=== PATIENT | female | born 1975 | race Caucasian/White ===

== ENCOUNTER → 2016-11-02 | Outpatient (CLI) | payer MEDICARE, MEDICAID ==
[~2016-11-02] MED LIST: ACET-789 PO; ALBU8.5H2 INH; CETI10TA20 PO; CODE-54 PO; CYCL10TA45 PO; DULO30CA46 PO; FLUT1DIS IH; KETO10TA55 PO; LITH150C PO; LORA1TAB PO; METH4TAB27 PO; MONT10TA21 PO; MORP15TA PO; NF-LAM100T PO; ORLI60CA2 PO; ORPH100T3 PO; PRED20TA PO; TRAZ300T3 PO; VENL150C PO
[2016-11-02 14:35] VITALS: BP 150/99
--- NOTE | 2016-11-02 14:35 | Urgent Care T Sheet Gen (E) ---
Intake General Temperature (Fahrenheit): 99.0 Pulse: 100 Blood Pressure Systolic: 150 Blood Pressure Diastolic: 99 Respirations: 20 SPO2: 98 Description of Symptoms Patient presents with a red, itchy, generalized rash which was first noticed on Tuesday. Denies any change to detergents or soaps. Patient states this happens quite often. Took some Benadryl earlier without any improvement. Would like a steroid shot, which is usually what she needs to help settle her skin. No itchy throat or SOB. History of Present Illness Allergies: Coded Allergies: Oxycodone (Verified Allergy, Unknown, RASH, N/V, 06/23/14) aspirin (Verified Allergy, Unknown, RASH, N/V, 06/23/14) hydrocodone (Verified Allergy, Unknown, RASH, N/V, 06/23/14) latex (Verified Allergy, Unknown, SKIN BLISTERS, 06/23/14) Uncoded Allergies: ADHESIVE FROM BANDAIDS (Allergy, Unknown, SKIN "BREAK OUT" AT SITE OF APPLICATION., 06/23/14) Home Meds Active Scripts Acetaminophen/Codeine (Tylenol W/Codeine #3 (300mg/30mg))1 Tab Tablet1-2 Tab PO Q4H PRN PAIN #15 TAB Prov:MATHEUS PATTERSON MD 06/22/14 Prednisone 20 Mg Infasd35 Mg PO DAILY 10 Days 2 daily x3 days, then One daily x3 days, then 1/2 daily x4 days. Prov:YOBANI PRASAD MD 12/31/13 Reported Medications Cyclobenzaprine HCl (Flexeril)10 Mg Nxwpsw74 Mg PO TID PRN PAIN 12/31/13 Orlistat ([place])60 Mg Lffoqcy74 Mg PO TID PRN CONSTIPATION 12/31/13 Fluticasone/Salmeterol (Advair 100mcg/50mcg Diskus)1 Disk Inhp1 Disk IH BID 12/31/13 Duloxetine HCl 30 Mg Capsule.dr90 Mg PO DAILY 12/31/13 Venlafaxine HCl (Effexor XR)150 Mg Cap.er.24h2 Cap PO DAILY 09/29/12 Lorazepam 1 Mg Tablet1 Tab PO TID 09/29/12 Trazodone HCl 300 Mg Tablet1 Tab PO DAILY 09/29/12 Albuterol Sulfate (Proair HFA)8.5 Gm Hfa.aer.ad2 Puff INH 6 TIME PER DAY 09/29/12 Montelukast Sodium (Singulair)10 Mg Tablet1 Tab PO DAILY 09/29/12 Cetirizine HCl (Zyrtec)10 Mg Tablet1 Tab PO DAILY 09/29/12 [place] Carbonate 150 Mg Capsule1 Cap PO BID 09/29/12 Lamotrigine (Lamictal)100 Mg Tab1 Tab PO BID 09/29/12 Respiratory Constitutional Symptoms: No syptoms reported EENTM: No symptoms reportedNo Throat swelling Respiratory: No symptoms reportedNo Cough, No Short of breath Skin: Rash All Other Systems Reviewed Remaining Systems: All other systems reviewed with negative findings Past Rtlrrje-Spmyyj-Zjejxv Hx Patient's Social History Recent foreign travel: No Surgeries/Hospitalizations Hospitalization/Surgery Hx: BILATERAL BUNIONECTOMY X 2, TL, TONGUE SURGERY SMALL CHILD, BACK PROBLEMS STARTED AT AGE 27 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 worse along the lateral legs and arms. rash is blanchable. scratch dotson seen throughout. no signs of infection.) Medications Administered Medications Adminstered: Depomedrol (80mg IM injection into the L gluteal. Lot [id number] Exp 04/2017) Departure Urgent Care Impression Impression: Primary Impression: Pruritic rash Additional Impression: Elevated blood pressure reading Departure Disposition: 01 HOME OR SELF-CARE Condition: Stable Referrals: SAUMYA MAJOR MD (PCP) Additional Instructions: The patient takes several daily meds. The Depomedrol can potentially interact with the Ativan she takes however she states she takes steroids all the time and has never had an issue. I have also sent a Medrol dose pack prescription to [facility]. If the rash doesn' t improve with the IM steroid, she may start the oral Suggested she continue with Benadryl as directed for additional relief Return if no better Patient understands DC instructions. All questions were answered. Scripts Methylprednisolone (Medrol Dosepack)21 Tab/Pkt Tablet6 Tab PO DAILY Inflammation #1 PKT Ref 0 6 tabs po on day 1 then decrease by 1 tab daily until packet is gone Prov:RITCHIE ALSTON 11/02/16 End of report . RITCHIE ALSTON Nov 02, 2016 14:35
== END ==
LOC: MHUC 14:05
PROVIDERS: ATTEND Physician Assistant
DX: L29.8 Other pruritus (principal); R03.0 Elevated blood-pressure reading, without diagnosis of hypertension
CPT/HCPCS: 99213